=== PATIENT | male | born 1945 | race Caucasian/White ===

== ENCOUNTER 2016-03-30 12:23 | Emergency (ER) | payer OTHER ==
[~2016-03-30] VITALS: Ht 177.8 cm; Wt 109.2 kg
[~2016-03-30 12:23] MED LIST: ARTIFICIAL TEAR15 M1 BOTH EYES; ASPIR 8181 M1 PO; BISOPROLOL-HCT1 EAC2 PO; CARDIZEM60 MG PO; CRESTOR20 MG PO; DOCUSATE SODIU100 MG PO; EFFIENT10 MG PO; IBUPROFEN PO; IBUPROFEN800 MG PO; LIPITOR40 MG PO; LISINOPRIL20 MG PO; MELOXICAM15 MG PO; OMEPRAZOLE20 MG PO; PERCOCET 5/31 TABLET PO; TERAZOSIN HCL5 MG PO
[2016-03-30 13:16] LABS: HEMATOCRIT 35.4 % (38.0-50.0); MCH 30.4 PG (29.0-34.0); MCV 86.8 FL (86-99); MEAN PLAT.VOLUME 10.3 uM^3 (9.0-12.4); PLATELET COUNT 161 K/uL (156-360); RBC DIS.WIDTH-SD 40.4 % (39-53); RED BLOOD COUNT 4.08 M/uL (4.00-5.50)
[2016-03-30 13:18] LABS: WHITE BLOOD COUNT 7.5 K/uL (4.1-10.2)
[2016-03-30 13:27] LABS: CHLORIDE 104 mEq/L (99-109); POTASSIUM 4.2 mEq/L (3.7-5.4); SODIUM 139 mEq/L (136-147)
[2016-03-30 13:29] LABS: GLUCOSE 143 mg/dL (70-99)
[2016-03-30 13:30] LABS: ANION GAP 12 MEQ/L (2-14)
[2016-03-30 13:31] LABS: TOTAL BILIRUBIN 0.6 mg/dL (0.0-1.0)
[2016-03-30 13:33] LABS: ALKALINE PHOSPHATASE 64 IU/L (3-129); GFR ESTIMATE (CALCULATED) > 59 mL/min/
[2016-03-30 13:34] LABS: UREA NITROGEN (BUN) 20 mg/dL (9-23)
[2016-03-30 13:40] LABS: TROP-I INTERPRETATION NEGATIVE; TROPONIN-I < 0.01 ng/mL (0.0-0.30)
[2016-03-30 14:46] LABS: ADD MIUA? NO; BILIRUBIN NEGATIVE; BLOOD NEGATIVE; COLOR YELLOW ((YELLOW)); GLUCOSE (STRIP) NEGATIVE; KETONES NEGATIVE; LEUKOCYTES NEGATIVE; NITRITE NEGATIVE; PROTEIN (STRIP) NEGATIVE; SPECIFIC GRAVITY 1.012 (1.000-1.030); UROBILINOGEN 0.2 MG/DL (0.2-1.0)
[2016-03-30 16:05] VITALS: BP 147/72
== END 2016-03-30 16:09 | disposition home or self-care (01) ==
LOC: EME 12:23
PROVIDERS: Nurse Practitioner Family
DX: T44.3X5A Adverse effect of other parasympatholytics [anticholinergics and antimuscarinics] and spasmolytics, initial encounter (principal); R55 Syncope and collapse; Z98.890 Other specified postprocedural states
CPT/HCPCS: 70450; 71020; 80053; 81003; 84484; 85027; 93005; 99281; 99285; J1170; J7030

== ENCOUNTER 2016-06-24 13:02 | Observation (INO) | payer OTHER ==
[~2016-06-24] VITALS: Ht 177.8 cm; Wt 102.2 kg
[2016-06-24] MEDS ORDERED: CLOPIDOGREL75 MG PO (13:29)
[2016-06-24] MEDS ORDERED: MELOXICAM15 MG PO (13:30)
[2016-06-24] MEDS ORDERED: SPIRIVA RESPIMAT4 G1 IH (13:31)
[2016-06-24] MEDS ORDERED: PROVENTIL,VENTOL2 MG PO (13:32)
[2016-06-24] MEDS ORDERED: CALCIUM500 M4 PO (13:34)
[2016-06-24 13:41] LABS: HEMATOCRIT 32.8 % (38.0-50.0); MCH 30.6 PG (29.0-34.0); MCHC 34.5 G/DL (30.0-36.0); MCV 88.9 FL (86-99); MEAN PLAT.VOLUME 10.1 uM^3 (9.0-12.4); PLATELET COUNT 175 K/uL (156-360); RBC DIS.WIDTH-CV 13.2 % (11.8-14.6); RBC DIS.WIDTH-SD 43.4 % (39-53); RED BLOOD COUNT 3.69 M/uL (4.00-5.50); WHITE BLOOD COUNT 5.8 K/uL (4.1-10.2)
[2016-06-24 13:52] LABS: CHLORIDE 103 mEq/L (99-109); POTASSIUM 3.9 mEq/L (3.7-5.4); SODIUM 138 mEq/L (136-147)
[2016-06-24 13:54] LABS: GLUCOSE 136 mg/dL (70-99)
[2016-06-24 13:55] LABS: ANION GAP 9 MEQ/L (2-14)
[2016-06-24 13:58] LABS: GFR ESTIMATE (CALCULATED) > 59 mL/min/; UREA NITROGEN (BUN) 18 mg/dL (9-23)
[2016-06-24 14:03] LABS: TROP-I INTERPRETATION NEGATIVE; TROPONIN-I < 0.01 ng/mL (0.0-0.30)
[2016-06-24 14:59] LABS: D-DIMER ELISA 0.78 mg/L FEU (< 0.57)
[2016-06-24 15:23] VITALS: BP 146/65
[2016-06-24 19:30] VITALS: BP 151/68
[2016-06-24] MEDS ORDERED: PROVENTIL HFA6.7 GM IH (19:53)
[2016-06-24 23:44] VITALS: BP 148/68
[2016-06-25 00:58] LABS: TROP-I INTERPRETATION NEGATIVE; TROPONIN-I < 0.01 ng/mL (0.0-0.30)
[2016-06-25 04:17] VITALS: BP 143/70
[2016-06-25 04:43] LABS: HEMATOCRIT 32.9 % (38.0-50.0); MCH 29.9 PG (29.0-34.0); MCHC 33.7 G/DL (30.0-36.0); MCV 88.7 FL (86-99); MEAN PLAT.VOLUME 10.2 uM^3 (9.0-12.4); PLATELET COUNT 154 K/uL (156-360); RBC DIS.WIDTH-CV 13.3 % (11.8-14.6); RBC DIS.WIDTH-SD 42.7 % (39-53); RED BLOOD COUNT 3.71 M/uL (4.00-5.50); WHITE BLOOD COUNT 6.2 K/uL (4.1-10.2)
[2016-06-25 04:54] LABS: INTER. NORMALIZED RATIO 1.1; PROTHROMBIN TIME 10.8 (9.2-11.2); PTT 28.2 (25-32)
[2016-06-25 04:56] LABS: CHLORIDE 104 mEq/L (99-109); POTASSIUM 3.9 mEq/L (3.7-5.4); SODIUM 141 mEq/L (136-147)
[2016-06-25 04:58] LABS: GLUCOSE 113 mg/dL (70-99)
[2016-06-25 05:00] LABS: ANION GAP 10 MEQ/L (2-14)
[2016-06-25 05:02] LABS: GFR ESTIMATE (CALCULATED) > 59 mL/min/
[2016-06-25 05:03] LABS: UREA NITROGEN (BUN) 13 mg/dL (9-23)
[2016-06-25 05:05] LABS: TROP-I INTERPRETATION NEGATIVE; TROPONIN-I < 0.01 ng/mL (0.0-0.30)
[2016-06-25 12:01] VITALS: BP 133/64
== END 2016-06-25 14:36 | disposition home or self-care (01) ==
LOC: EME 13:02 → EDOF 14:15 → 5WEST 15:10
PROVIDERS: Emergency Medicine; Internal Medicine
DX: R07.89 Other chest pain (principal); I25.10 Atherosclerotic heart disease of native coronary artery without angina pectoris; I10 Essential (primary) hypertension; Z95.5 Presence of coronary angioplasty implant and graft; E78.5 Hyperlipidemia, unspecified
CPT/HCPCS: 71020; 71275; 80048; 84484; 85027; 85379; 85610; 85730; 93005; 94640; 99202; 99281; 99285; G0378; J1650; S0028

== ENCOUNTER → 2016-11-03 | Outpatient (CLI) | payer OTHER ==
[~2016-11-03] MED LIST changes: +CALCIUM500 M4 PO; +CLOPIDOGREL75 MG PO; +PROVENTIL HFA6.7 GM IH; +PROVENTIL,VENTOL2 MG PO; +SPIRIVA RESPIMAT4 G1 IH
== END | disposition home or self-care (01) ==
DX: R13.11 Dysphagia, oral phase (principal); R13.13 Dysphagia, pharyngeal phase; R05 Cough
CPT/HCPCS: 92611 GN; G8996 GN; G8997 GN; G8998 GN

== ENCOUNTER 2017-02-22 08:05 | Inpatient (IN) | payer OTHER ==
[~2017-02-22] VITALS: Ht 172.7 cm; Wt 100.0 kg
[~2017-02-22 08:05] MED LIST changes: -OMEPRAZOLE20 MG PO; +OMEPRAZOLE40 M1 PO
[2017-02-22 08:32] LABS: EOSINOPHIL (%) 0 % (0-5); HEMATOCRIT 38.1 % (38.0-50.0); IMMATURE GRANULOCYTE (%) 0.3 % (0.0-0.7); INSTRUMENT ABS NEUTROPHIL CT 12.4 K/uL; LYMPHOCYTE COUNT 0.3 K/uL (1.0-2.8); MCH 30.6 PG (29.0-34.0); MCHC 34.4 G/DL (30.0-36.0); MEAN PLAT.VOLUME 10.1 uM^3 (9.0-12.4); MONOCYTE (%) 4.8 % (3-12); MONOCYTE COUNT 0.6 K/uL (0-0.8); NEUTROPHIL (%) 92.3 % (45-76); NEUTROPHIL COUNT 12.4 K/uL (1.8-6.4); PLATELET COUNT 162 K/uL (156-360); RBC DIS.WIDTH-CV 13.2 % (11.8-14.6); RBC DIS.WIDTH-SD 42.9 % (39-53); RED BLOOD COUNT 4.28 M/uL (4.00-5.50); WHITE BLOOD COUNT 13.4 K/uL (4.1-10.2)
[2017-02-22 08:40] LABS: CHLORIDE 102 mEq/L (99-109); POTASSIUM 4.3 mEq/L (3.7-5.4); SODIUM 138 mEq/L (136-147)
[2017-02-22 08:41] LABS: GLUCOSE 169 mg/dL (70-99)
[2017-02-22 08:43] LABS: ANION GAP 12 MEQ/L (2-14)
[2017-02-22 08:45] LABS: GFR ESTIMATE (CALCULATED) > 59 mL/min/ (58.99-99999)
[2017-02-22 08:46] LABS: UREA NITROGEN (BUN) 21 mg/dL (9-23)
[2017-02-22 09:48] LABS: TOTAL BILIRUBIN 2.7 mg/dL (0.0-1.0)
[2017-02-22 09:49] LABS: ALKALINE PHOSPHATASE 174 IU/L (3-129)
[2017-02-22 09:52] LABS: DIRECT BILIRUBIN 1.9 mg/dL (0.0-0.3)
[2017-02-22 09:53] LABS: LIPASE 732 U/L (1.0-51.0)
[2017-02-22 10:55] LABS: ADD MIUA? YES; BILIRUBIN NEGATIVE; BLOOD NEGATIVE; COLOR AMBER ((YELLOW)); GLUCOSE (STRIP) NEGATIVE; KETONES NEGATIVE; LEUKOCYTES TRACE; NITRITE NEGATIVE; PROTEIN (STRIP) NEGATIVE; SPECIFIC GRAVITY 1.032 (1.000-1.030)
[2017-02-22 10:59] LABS: BACTERIA RARE /HPF; EPITHELIAL CELLS NONE SEEN /HPF; MUCUS TRACE /LPF; UCUL ADDED? NO; WHITE BLOOD CELLS 0-5 /HPF (0-5)
[2017-02-22] MEDS ORDERED: RESTASIS MULTI5.5 ML BOTH EYES (16:59)
[2017-02-22 22:22] VITALS: BP 149/71
[2017-02-23 00:24] VITALS: BP 138/66
[2017-02-23 05:25] VITALS: BP 143/67
[2017-02-23 06:07] LABS: ALKALINE PHOSPHATASE 182 IU/L (3-129); ANION GAP 7 MEQ/L (2-14); C-REACTIVE PROTEIN 76.4 MG/L (0-10); CHLORIDE 106 MEQ/L (99-109); GFR ESTIMATE (CALCULATED) > 59 mL/min/ (58.99-99999); POTASSIUM 3.8 MEQ/L (3.7-5.4); SAMPLE HEMOLYSIS CHECK 0; SAMPLE ICTERIC CHECK 1; SAMPLE LIPEMIA CHECK 0; SODIUM 140 MEQ/L (136-147); TOTAL BILIRUBIN 5.7 MG/DL (0.0-1.0); UREA NITROGEN (BUN) 17 mg/dL (9-23)
[2017-02-23 06:08] LABS: GLUCOSE 85 mg/dL (70-99)
[2017-02-23 06:24] LABS: LIPASE 145 U/L (1.0-51.0)
[2017-02-23 08:15] VITALS: BP 142/66
[2017-02-23 12:30] VITALS: BP 164/72
[2017-02-23 15:30] VITALS: BP 169/68
[2017-02-23 22:50] VITALS: BP 188/80
[2017-02-24 04:50] VITALS: BP 149/67
[2017-02-24 06:18] LABS: ALKALINE PHOSPHATASE 197 IU/L (3-129); ANION GAP 9 MEQ/L (2-14); CHLORIDE 102 MEQ/L (99-109); GFR ESTIMATE (CALCULATED) > 59 mL/min/ (58.99-99999); GLUCOSE 90 mg/dL (70-99); POTASSIUM 3.9 MEQ/L (3.7-5.4); SAMPLE HEMOLYSIS CHECK 0; SAMPLE ICTERIC CHECK 1; SAMPLE LIPEMIA CHECK 0; SODIUM 138 MEQ/L (136-147); TOTAL BILIRUBIN 5.2 MG/DL (0.0-1.0); UREA NITROGEN (BUN) 18 mg/dL (9-23)
[2017-02-24 08:05] VITALS: BP 176/73
[2017-02-24 08:13] LABS: EOSINOPHIL (%) 1.1 % (0-5); EOSINOPHIL COUNT 0.1 K/uL (0-0.3); HEMATOCRIT 29.9 % (38.0-50.0); IMMATURE GRANULOCYTE (%) 0.3 % (0.0-0.7); INSTRUMENT ABS NEUTROPHIL CT 4.9 K/uL; LYMPHOCYTE COUNT 0.6 K/uL (1.0-2.8); MCH 30.7 PG (29.0-34.0); MCHC 34.4 G/DL (30.0-36.0); MONOCYTE (%) 9.8 % (3-12); MONOCYTE COUNT 0.6 K/uL (0-0.8); NEUTROPHIL (%) 78.5 % (45-76); NEUTROPHIL COUNT 4.9 K/uL (1.8-6.4); PLATELET COUNT 128 K/uL (156-360); RBC DIS.WIDTH-SD 41.8 % (39-53); WHITE BLOOD COUNT 6.3 K/uL (4.1-10.2)
[2017-02-24 08:17] LABS: RED BLOOD COUNT 3.36 M/uL (4.00-5.50)
[2017-02-24 12:45] VITALS: BP 166/73
[2017-02-24 16:20] VITALS: BP 162/68
[2017-02-24 20:06] VITALS: BP 147/87
[2017-02-25 00:21] VITALS: BP 168/74
[2017-02-25 04:59] VITALS: BP 156/72
[2017-02-25 05:22] LABS: POINT-OF-CARE METER ID UU13113698
[2017-02-25 06:13] LABS: EOSINOPHIL (%) 3.2 % (0-5); EOSINOPHIL COUNT 0.2 K/uL (0-0.3); HEMATOCRIT 33.3 % (38.0-50.0); IMMATURE GRANULOCYTE (%) 0.1 % (0.0-0.7); INSTRUMENT ABS NEUTROPHIL CT 6.1 K/uL; LYMPHOCYTE COUNT 0.5 K/uL (1.0-2.8); MCH 30.3 PG (29.0-34.0); MCHC 34.2 G/DL (30.0-36.0); MCV 88.6 FL (86-99); MEAN PLAT.VOLUME 10.6 uM^3 (9.0-12.4); MONOCYTE (%) 7.4 % (3-12); MONOCYTE COUNT 0.6 K/uL (0-0.8); NEUTROPHIL (%) 82.4 % (45-76); NEUTROPHIL COUNT 6.1 K/uL (1.8-6.4); PLATELET COUNT 146 K/uL (156-360); RBC DIS.WIDTH-SD 42.7 % (39-53); RED BLOOD COUNT 3.76 M/uL (4.00-5.50); WHITE BLOOD COUNT 7.4 K/uL (4.1-10.2)
[2017-02-25 06:41] LABS: ALKALINE PHOSPHATASE 234 IU/L (3-129); ANION GAP 8 MEQ/L (2-14); CHLORIDE 99 MEQ/L (99-109); GFR ESTIMATE (CALCULATED) > 59 mL/min/ (58.99-99999); LIPASE 9 U/L (1.0-51.0); POTASSIUM 3.7 MEQ/L (3.7-5.4); SAMPLE HEMOLYSIS CHECK 0; SAMPLE ICTERIC CHECK 1; SAMPLE LIPEMIA CHECK 0; SODIUM 137 MEQ/L (136-147); UREA NITROGEN (BUN) 12 mg/dL (9-23)
[2017-02-25 06:42] LABS: GLUCOSE 116 mg/dL (70-99)
[2017-02-25 12:04] VITALS: BP 147/71
[2017-02-25 15:00] VITALS: BP 191/86
[2017-02-25 19:00] VITALS: BP 188/88
[2017-02-25 21:29] VITALS: BP 152/70
[2017-02-26 00:06] VITALS: BP 155/68
[2017-02-26 03:03] VITALS: BP 169/79
[2017-02-26 04:54] LABS: METH RESISTANT S AUREUS PCR NEGATIVE (NEGATIVE)
[2017-02-26 04:57] LABS: PROBE CHECK PASS; SPECIMEN PROCESSING CONTROL PASS
[2017-02-26 05:33] LABS: EOSINOPHIL (%) 4.3 % (0-5); EOSINOPHIL COUNT 0.3 K/uL (0-0.3); HEMATOCRIT 34.2 % (38.0-50.0); IMMATURE GRANULOCYTE (%) 0.3 % (0.0-0.7); INSTRUMENT ABS NEUTROPHIL CT 5.9 K/uL; LYMPHOCYTE COUNT 0.5 K/uL (1.0-2.8); MCHC 33.3 G/DL (30.0-36.0); MEAN PLAT.VOLUME 10.8 uM^3 (9.0-12.4); MONOCYTE COUNT 0.6 K/uL (0-0.8); NEUTROPHIL (%) 80.3 % (45-76); NEUTROPHIL COUNT 5.9 K/uL (1.8-6.4); PLATELET COUNT 168 K/uL (156-360); RBC DIS.WIDTH-CV 12.7 % (11.8-14.6); RBC DIS.WIDTH-SD 40.8 % (39-53); RED BLOOD COUNT 3.93 M/uL (4.00-5.50); WHITE BLOOD COUNT 7.4 K/uL (4.1-10.2)
[2017-02-26 05:58] LABS: ANION GAP 9 MEQ/L (2-14); CHLORIDE 100 MEQ/L (99-109); GFR ESTIMATE (CALCULATED) > 59 mL/min/ (58.99-99999); GLUCOSE 103 mg/dL (70-99); POTASSIUM 3.8 MEQ/L (3.7-5.4); SAMPLE HEMOLYSIS CHECK 0; SAMPLE ICTERIC CHECK 0; SAMPLE LIPEMIA CHECK 0; SODIUM 140 MEQ/L (136-147); UREA NITROGEN (BUN) 9 mg/dL (9-23)
[2017-02-26 08:30] VITALS: BP 169/82
[2017-02-26] MEDS ORDERED: NORCO 5/3251 TABLET PO (11:55)
[2017-02-26 12:30] VITALS: BP 175/78
[2017-02-26 16:45] VITALS: BP 168/66
== END 2017-02-26 18:15 | disposition home or self-care (01) | DRG 418 ==
LOC: EME 08:05 → EDOF 12:37 → 4EAST 12:37 → ENRESERV 12:39 → 4EAST 21:49
PROVIDERS: Hospitalist; Internal Medicine; Internal Medicine Gastroenterology; Physician Assistant Surgical
DX: K85.10 Biliary acute pancreatitis without necrosis or infection (principal); K80.11 Calculus of gallbladder with chronic cholecystitis with obstruction; I11.9 Hypertensive heart disease without heart failure; I25.10 Atherosclerotic heart disease of native coronary artery without angina pectoris; R74.0 Nonspecific elevation of levels of transaminase and lactic acid dehydrogenase [LDH]; R74.8 Abnormal levels of other serum enzymes; E78.5 Hyperlipidemia, unspecified; K21.9 Gastro-esophageal reflux disease without esophagitis; N40.0 Benign prostatic hyperplasia without lower urinary tract symptoms; H04.123 Dry eye syndrome of bilateral lacrimal glands; E66.9 Obesity, unspecified; Z68.33 Body mass index [BMI] 33.0-33.9, adult; Z79.82 Long term (current) use of aspirin; Z95.5 Presence of coronary angioplasty implant and graft
CPT/HCPCS: 70150; 71010; 74177; 74181; 74328; 76705; 80048; 80053; 80076; 81003; 82948; 83605; 83690; 85025; 85027; 86140; 87040; 87081; 87641; 88304; 93005; 94010; 94799; 99281; 99285; C1726; C1769; C9113; J0330; J0360; J1100; J1170; J1650; J1885; J2405; J2543; J3010; J7030; J7050; J7120; S0028; S0074

== ENCOUNTER 2017-02-28 21:04 | Emergency (ER) | payer OTHER ==
[~2017-02-28] VITALS: Ht 172.7 cm; Wt 99.7 kg
[~2017-02-28 21:04] MED LIST changes: +NORCO 5/3251 TABLET PO; +RESTASIS MULTI5.5 ML BOTH EYES
[2017-02-28 21:42] LABS: HEMATOCRIT 34.8 % (38.0-50.0); MCH 30.2 PG (29.0-34.0); MCHC 34.5 G/DL (30.0-36.0); MCV 87.7 FL (86-99); PLATELET COUNT 196 K/uL (156-360); RBC DIS.WIDTH-CV 12.8 % (11.8-14.6); RBC DIS.WIDTH-SD 40.6 % (39-53); RED BLOOD COUNT 3.97 M/uL (4.00-5.50); WHITE BLOOD COUNT 8.4 K/uL (4.1-10.2)
[2017-02-28 21:50] LABS: ALBUMIN 3.6 g/dL (3.2-4.8)
[2017-02-28 21:51] LABS: CHLORIDE 99 mEq/L (99-109); POTASSIUM 3.4 mEq/L (3.7-5.4); SODIUM 135 mEq/L (136-147)
[2017-02-28 21:53] LABS: TOTAL PROTEIN 7.1 g/dL (6.4-8.3)
[2017-02-28 21:55] LABS: GLUCOSE 173 mg/dL (70-99)
[2017-02-28 21:56] LABS: ALKALINE PHOSPHATASE 212 IU/L (3-129)
[2017-02-28 21:57] LABS: CREATININE 0.8 mg/dL (0.6-1.3); GFR ESTIMATE (CALCULATED) > 59 mL/min/ (58.99-99999)
[2017-02-28 21:58] LABS: UREA NITROGEN (BUN) 11 mg/dL (9-23)
[2017-02-28 21:59] LABS: AST (GOT) 59 IU/L (2-34); TOTAL BILIRUBIN 1.5 mg/dL (0.0-1.0)
[2017-02-28 22:00] LABS: ALT (GPT) 121 IU/L (3-49); LIPASE 8 U/L (1.0-51.0)
[2017-02-28 23:14] LABS: MAGNESIUM 1.9 mg/dL (1.3-2.7)
[2017-02-28 23:27] LABS: TROP-I INTERPRETATION NEGATIVE; TROPONIN-I < 0.01 ng/mL (0.0-0.30)
[2017-03-01 02:58] LABS: APPEARANCE CLEAR ((CLEAR)); BILIRUBIN NEGATIVE; BLOOD NEGATIVE; COLOR YELLOW ((YELLOW)); GLUCOSE (STRIP) NEGATIVE; KETONES NEGATIVE; LEUKOCYTES NEGATIVE; NITRITE NEGATIVE; PROTEIN (STRIP) NEGATIVE; UCUL ADDED? NO
[2017-03-01 03:16] LABS: SPECIFIC GRAVITY 1.056 (1.000-1.030)
[2017-03-01] MEDS ORDERED: NORCO 5/3251 TABLET PO (03:19)
[2017-03-01] MEDS ORDERED: COLACE100 MG PO (03:19)
[2017-03-01 03:41] VITALS: BP 146/62
== END 2017-03-01 03:42 | disposition home or self-care (01) ==
LOC: EME 21:04
DX: G89.18 Other acute postprocedural pain (principal); R10.84 Generalized abdominal pain; J44.9 Chronic obstructive pulmonary disease, unspecified; E78.5 Hyperlipidemia, unspecified; I10 Essential (primary) hypertension; K21.9 Gastro-esophageal reflux disease without esophagitis; I25.10 Atherosclerotic heart disease of native coronary artery without angina pectoris; Z95.5 Presence of coronary angioplasty implant and graft; Z88.5 Allergy status to narcotic agent
CPT/HCPCS: 71010; 74177; 80053; 81003; 83690; 83735; 84484; 85027; 93005; 99281; 99285; J1885; J3010; J7040

== ENCOUNTER 2017-09-27 22:23 | Observation (INO) | payer OTHER ==
[~2017-09-27] VITALS: Ht 174 cm; Wt 104.0 kg
[~2017-09-27 22:23] MED LIST changes: +COLACE100 MG PO
[2017-09-27 22:45] LABS: BASOPHIL (%) 0.7 % (0-1); BASOPHIL COUNT 0.1 K/uL (0-0.1); EOSINOPHIL (%) 2.8 % (0-5); EOSINOPHIL COUNT 0.2 K/uL (0-0.3); HEMATOCRIT 32.9 % (38.0-50.0); HEMOGLOBIN 11.6 G/DL (12.5-16.6); IMMATURE GRANULOCYTE (%) 0.1 % (0.0-0.7); LYMPHOCYTE (%) 23.2 % (15-42); LYMPHOCYTE COUNT 1.7 K/uL (1.0-2.8); MCH 31.2 PG (29.0-34.0); MCHC 35.3 G/DL (30.0-36.0); MCV 88.4 FL (86-99); MONOCYTE (%) 6.2 % (3-12); MONOCYTE COUNT 0.4 K/uL (0-0.8); NEUTROPHIL COUNT 4.8 K/uL (1.8-6.4); PLATELET COUNT 167 K/uL (156-360); RBC DIS.WIDTH-CV 13.2 % (11.8-14.6); RBC DIS.WIDTH-SD 42.4 % (39-53); RED BLOOD COUNT 3.72 M/uL (4.00-5.50); WHITE BLOOD COUNT 7.2 K/uL (4.1-10.2)
[2017-09-27 22:50] LABS: INTER. NORMALIZED RATIO 1.1
[2017-09-27 22:52] LABS: PTT 28.2 SEC (25-37)
[2017-09-27 22:53] LABS: AMYLASE 48 IU/L (1-118); CHLORIDE 102 mEq/L (99-109); POTASSIUM 3.9 mEq/L (3.7-5.4); SODIUM 139 mEq/L (136-147)
[2017-09-27 22:55] LABS: GLUCOSE 95 mg/dL (70-99)
[2017-09-27 22:58] LABS: SERUM ETHYL ALCOHOL < 10 mg/dL
[2017-09-27 22:59] LABS: GFR ESTIMATE (CALCULATED) > 59 mL/min/ (58.99-99999)
[2017-09-27 23:00] LABS: UREA NITROGEN (BUN) 17 mg/dL (9-23)
[2017-09-27 23:02] LABS: LIPASE 278 U/L (1.0-51.0)
[2017-09-27 23:05] LABS: TROP-I INTERPRETATION NEGATIVE; TROPONIN-I < 0.01 ng/mL (0.0-0.30)
[2017-09-27 23:52] LABS: APPEARANCE CLEAR ((CLEAR)); BILIRUBIN NEGATIVE; BLOOD NEGATIVE; COLOR STRAW ((YELLOW)); GLUCOSE (STRIP) NEGATIVE; KETONES NEGATIVE; LEUKOCYTES NEGATIVE; NITRITE NEGATIVE; PROTEIN (STRIP) NEGATIVE; SPECIFIC GRAVITY 1.008 (1.000-1.030); UCUL ADDED? NO; UROBILINOGEN 0.2 MG/DL (0.2-1.0)
[2017-09-28 00:04] LABS: COCAINE NEGATIVE (150 ng/mL); METHAMPHETAMINE NEGATIVE (500 ng/mL); OPIATES (MORPHINE) NEGATIVE (100 ng/mL); PHENCYCLIDINE NEGATIVE (25 ng/mL); THC CANNABINOIDS NEGATIVE (50 ng/mL)
[2017-09-28 00:05] LABS: AMPHETAMINE NEGATIVE (500 ng/mL); BARBITURATES NEGATIVE (200 ng/mL); BENZODIAZEPINES NEGATIVE (150 ng/mL); BUPRENORPHINE NEGATIVE (10 ng/mL); METHADONE NEGATIVE (200 ng/mL); OXYCODONE NEGATIVE (100 ng/mL); PROPOXYPHENE NEGATIVE (300 ng/mL); TRICYCLIC ANTIDEPRESSANTS NEGATIVE (300 ng/mL)
[2017-09-28 01:37] LABS: APPEARANCE CLEAR/COLORLESS; CSF TUBE NUMBER TUBE #3
[2017-09-28 01:38] LABS: RED CELL COUNT 0 /MM^3 (0-1); WHITE CELL COUNT 1 /MM^3 (0-5)
[2017-09-28 03:13] LABS: CSF PROTEIN 44 mg/dL (15-45); GLUCOSE, CSF 53 mg/dL (40-80)
[2017-09-28 04:28] LABS: HEMATOCRIT 32.4 % (38.0-50.0); HEMOGLOBIN 11.4 G/DL (12.5-16.6); MCH 30.9 PG (29.0-34.0); MCHC 35.2 G/DL (30.0-36.0); MCV 87.8 FL (86-99); PLATELET COUNT 150 K/uL (156-360); RBC DIS.WIDTH-CV 13.2 % (11.8-14.6); RBC DIS.WIDTH-SD 41.9 % (39-53); RED BLOOD COUNT 3.69 M/uL (4.00-5.50); WHITE BLOOD COUNT 6.1 K/uL (4.1-10.2)
[2017-09-28 04:51] VITALS: BP 155/79
[2017-09-28 05:12] LABS: HDL CHOLESTEROL 26 MG/DL (Desirable>=40); LDL CHOLESTEROL 45 mg/dL (Desirable<100); NON-HDL CHOLESTEROL 65 mg/dL (Desirable<160); TOTAL CHOLESTEROL 91 mg/dL (Desirable<200); TRIGLYCERIDES 100 MG/DL (Normal: <150)
[2017-09-28 07:36] LABS: TROP-I INTERPRETATION NEGATIVE; TROPONIN-I < 0.01 ng/mL (0.0-0.30)
[2017-09-28 07:57] VITALS: BP 162/77
[2017-09-28] MEDS ORDERED: MUCINEX D ER T1 EACH PO (10:03)
[2017-09-28] MEDS ORDERED: PRINIVIL20 MG PO (10:03)
[2017-09-28] MEDS ORDERED: VITAMIN B122500 MCG PO (10:04)
[2017-09-28] MEDS ORDERED: TYLENOL ARTHRI650 MG PO (10:04)
[2017-09-28] MEDS ORDERED: CARDIZEM60 MG PO (10:55)
[2017-09-28 11:05] LABS: ALKALINE PHOSPHATASE 56 IU/L (3-129); ALT (GPT) 25 IU/L (3-49); AST (GOT) 26 IU/L (2-34); DIRECT BILIRUBIN 0.3 mg/dL (0.0-0.3); TOTAL BILIRUBIN 0.9 MG/DL (0.0-1.0); TOTAL PROTEIN 6.4 G/DL (6.4-8.3)
[2017-09-28 11:24] LABS: LIPASE 8 U/L (1.0-51.0)
[2017-09-28 12:01] LABS: TROP-I INTERPRETATION NEGATIVE; TROPONIN-I < 0.01 ng/mL (0.0-0.30)
[2017-09-29 09:59] LABS: HEMOGLOBIN A1c (GLYCOHEMOGLOB) 5.8 % (Below 5.7)
== END 2017-09-28 16:50 | disposition home or self-care (01) ==
LOC: EME → EDBD 22:23 → EDOF 09-28 03:09 → 4SOUTH 09-28 03:09 → EDOF 09-28 03:09 → ENRESERV 09-28 03:15 → 4SOUTH 09-28 04:30
PROVIDERS: Emergency Medicine; Hospitalist
PROC: 009U3ZX Drainage of Spinal Canal, Percutaneous Approach, Diagnostic (ICD-10-PCS; principal; 2017-09-28)
PROC: B246ZZZ Ultrasonography of Right and Left Heart (ICD-10-PCS; 2017-09-28)
DX: R51 Headache (principal); I11.9 Hypertensive heart disease without heart failure; I25.10 Atherosclerotic heart disease of native coronary artery without angina pectoris; E78.5 Hyperlipidemia, unspecified; Z95.5 Presence of coronary angioplasty implant and graft; Z79.82 Long term (current) use of aspirin; Z88.5 Allergy status to narcotic agent
CPT/HCPCS: 70450; 70486; 70551; 72141; 80048; 80061; 80076; 81003; 82150; 82945; 83036; 83690; 84157; 84484; 85025; 85027; 85610; 85730; 86850; 86900; 86901; 87070; 87205; 89051; 93005; 93306; 99281; 99285; G0378; G0480; J1200; J1885; J2765; J7030